=== PATIENT | female | born 2005 | race Asian ===

== ENCOUNTER 2024-07-17 12:49 | Outpatient (REF) | payer OTHER, SELFPAY ==
--- NOTE | ~2024-07-17 | US_ITS ---
CLINICAL HISTORY: pain left lower leg, bruising, long airplane flight r o DVT Venous duplex ultrasound left lower extremity Comparison: None Findings: The visualized deep veins are fully compressible with normal Doppler color flow and spectral tracings. No popliteal cyst. IMPRESSION: 1. Negative for left lower extremity deep vein thrombosis. This document has been electronically signed by: Nithin Chase MD on 07/17/2024 14:18:53
== END 2024-07-17 12:50 | disposition home or self-care (01) ==
LOC: HO.UMASIMG 12:49
PROVIDERS: Visit Provider Physician Assistant
DX: M79.662 Pain in left lower leg (principal)
CPT/HCPCS: 93971

== ENCOUNTER → 2024-07-17 13:00 | Outpatient (BNV) | payer OTHER, SELFPAY | PROVIDERS: Visit Provider Radiology Diagnostic Radiology | DX: M79.662 Pain in left lower leg (principal) | CPT/HCPCS: 93971 ==